=== PATIENT | female | born 1975 ===

== ENCOUNTER 2016-09-16 22:19 | Emergency (ER) | payer SELFPAY ==
[2016-09-16 22:25] VITALS: RESP 18; TEMP 98.6; O2SAT 100
--- NOTE | 2016-09-16 23:27 | ED PDOC ---
HPI: Headache Time Seen by Provider: 09/16/16 22:57 Chief Complaint (Nursing): Headache Chief Complaint (Provider): headache History Per: Patient History/Exam Limitations: no limitations Onset/Duration Of Symptoms: Days (4) Current Symptoms Are (Timing): Still Present Quality: "Pain" Associated Symptoms: denies: Photophobia, Blurred Vision, Nausea, Vomiting, Extremity Weakness Additional History Per: Patient Additional Complaint(s): 41 y/o female presents for eval of left-sided headache x 4 days. Patient seen by PMD today and prescribed medication for high blood pressure; patient took one pill and did not note improvement of headache which prompted ED visit. Denies fever, dizziness, vision changes, extremity numbness/weakness, chest pain , shortness of breath, palpitations. Past Medical History Reviewed: Historical Data, Nursing Documentation, Vital Signs Vital Signs: Last Vital Signs Temp 98.6 F 09/16/16 22:20 Pulse 74 09/16/16 22:20 Resp 18 09/16/16 22:20 BP 149/107 H 09/16/16 22:20 Pulse Ox 100 09/16/16 22:20 - Medical History PMH: HTN - Family History Family History: States: Unknown Family Hx - Living Arrangements Living Arrangements: Alone - Home Medications Home Medications: Ambulatory Orders Medication Instructions Recorded Amlodipine/Atorvastatin 1 tab PO DAILY 09/17/16 [Amlodipine Besylate/Atorvastatin Calcium 10 M] - Allergies Allergies/Adverse Reactions: Allergies Allergy/AdvReac Type Severity Reaction Status Date / Time No Known Allergies Allergy Verified 05/25/15 18:05 Review of Systems ROS Statement: Except As Marked, All Systems Reviewed And Found Negative Neurological: Positive for: Headache Physical Exam - Reviewed Nursing Documentation Reviewed: Yes Vital Signs Reviewed: Yes - Physical Exam Appears: Positive for: Well, Non-toxic, No Acute Distress Head Exam: Positive for: ATRAUMATIC, NORMAL INSPECTION, NORMOCEPHALIC Skin: Positive for: Normal Color Eye Exam: Positive for: Normal appearance, EOMI, PERRL ENT: Positive for: Normal ENT Inspection Cardiovascular/Chest: Positive for: Regular Rate, Rhythm Respiratory: Positive for: Normal Breath Sounds Gastrointestinal/Abdominal: Positive for: Normal Exam Back: Positive for: Normal Inspection Extremity: Positive for: Normal ROM Neurologic/Psych: Positive for: Alert, Oriented - Laboratory Results Result Diagrams: 09/16/16 23:47 09/16/16 23:47 - ECG O2 Sat by Pulse Oximetry: 100 - Progress ED Course And Treament: labs, ekg, CT head, PO tylenol EXAM: CT Head Without Intravenous Contrast CLINICAL HISTORY: 41 years old, female; Pain; Headache; Additional info: Left-sided headache TECHNIQUE: Axial computed tomography images of the head/brain without intravenous contrast. This CT exam was performed using one or more of the following dose reduction techniques: automated exposure control, adjustment of the mA and/or kV according to patient size, and/or use of iterative reconstruction technique. Coronal and sagittal reformatted images were created and reviewed. COMPARISON: No relevant prior studies available. FINDINGS: Brain: Unremarkable. No hemorrhage. No significant white matter disease. No edema. Ventricles: Unremarkable. No ventriculomegaly. Bones/joints: Unremarkable. No acute fracture. Soft tissues: Unremarkable. Sinuses: Unremarkable as visualized. No acute sinusitis. Mastoid air cells: Unremarkable as visualized. No mastoid effusion. IMPRESSION: No evidence of acute intracranial pathology. On re-eval, patient states headache improved; repeat BP 124/75. Patient educated on findings, discharged with instructions to continue current blood pressure medication as directed. Advised Tylenol PRN headache. Follow up PMD 2-3 days. Return to ED for worsening/concerning symptoms. Disposition - Clinical Impression Clinical Impression: Headache - Patient ED Disposition Is Patient to be Admitted: No Counseled Patient/Family Regarding: Studies Performed, Diagnosis, Need For Followup - Disposition Disposition: Routine/Home Disposition Time: 01:35 Condition: IMPROVED Instructions: Acute Headache (ED) Print Language: SAMI
[2016-09-16 23:49] LABS: BASO % 0.3 % (0.0-2.0); EOS # 0.3 K/uL (0.0-0.7); EOS % 4.5 % (0.0-4.0); HEMATOCRIT 35.6 % (34.0-47.0); LYMPH # 2.1 K/uL (1.0-4.3); LYMPH % 31.1 % (20.0-40.0); MEAN CELL VOLUME 83.8 fl (81.0-99.0); MEAN CORPUSCULAR HEMOGLOBIN 27.1 pg (27.0-31.0); MEAN CORPUSCULAR HGB CONC 32.4 g/dL (33.0-37.0); MEAN PLATELET VOLUME 8.5 fl (7.2-11.7); MONO # 0.5 K/uL (0.0-0.8); MONO % 6.9 % (0.0-10.0); NEUT # 3.8 K/uL (1.8-7.0); NEUT % 57.2 % (50.0-75.0); RED CELL DISTRIBUTION WIDTH 17.9 % (11.5-14.5); WHITE BLOOD COUNT 6.7 K/uL (4.8-10.8)
[2016-09-17] LABS: ALB/GLOB RATIO 1.2 (1.0-2.1); ALKALINE PHOSPHATASE 85 U/L (38-126); ALT/SGPT 45 U/L (9-52); AST/SGOT 39 U/L (14-36); BILIRUBIN,TOTAL 0.8 mg/dl (0.2-1.3); BLOOD UREA NITROGEN 17 mg/dl (7-17); CARBON DIOXIDE 23 mmol/L (22-30); CHLORIDE 104 mmol/L (98-107); GFR AFRICAN-AMERICAN > 60; GLUCOSE,RANDOM 96 mg/dL (65-105); POTASSIUM 3.7 MMOL/L (3.6-5.0); SODIUM 139 mmol/l (132-148); TOTAL PROTEIN 7.7 G/DL (6.3-8.2)
[2016-09-17 00:21] VITALS: PULSE 66
[2016-09-17 01:41] VITALS: BP 124/7
--- NOTE | 2016-09-17 10:00 | CT ---
PROCEDURE: CT HEAD WITHOUT CONTRAST. HISTORY: left-sided headache COMPARISON: None available. TECHNIQUE: Axial computed tomography images were obtained through the head/brain without intravenous contrast. Radiation dose: Total exam DLP = 777.57 mGy-cm. This CT exam was performed using one or more of the following dose reduction techniques: Automated exposure control, adjustment of the mA and/or kV according to patient size, and/or use of iterative reconstruction technique. FINDINGS: HEMORRHAGE: No acute parenchymal, subarachnoid or extra-axial hemorrhage. BRAIN: No mass effect or edema. No atrophy or chronic microvascular ischemic changes. VENTRICLES: Unremarkable. No hydrocephalus. CALVARIUM: Unremarkable. PARANASAL SINUSES: Unremarkable as visualized. No significant inflammatory changes. MASTOID AIR CELLS: Unremarkable as visualized. No inflammatory changes. OTHER FINDINGS: None. IMPRESSION: No acute intracranial hemorrhage. The radiology superimposes
--- NOTE | 2016-09-17 23:52 | CARD ---
APPROVED REPORT EKG Measurement Heart [id number] <Conclusion> Normal sinus rhythm Normal ECG
== END 2016-09-17 01:45 | disposition home or self-care (01) ==
LOC: H.ER 22:19
DX: R51 Headache (principal); I10 Essential (primary) hypertension